=== PATIENT | female | born 1935 | race Caucasian/White ===

== ENCOUNTER 2017-10-25 13:06 | Emergency (ER) | payer OTHER ==
[2017-10-25 15:43] VITALS: BP 119/61
--- NOTE | 2017-10-25 16:05 | ED ---
Skin Complaint - HPI Summary HPI Summary: 82 yr old female with the complaint of abscess/cyst left upper back. onset couple of days ago. Her daughter squeezed the area and the patient states about a dime size amount of pus came out of the area. She states it had a white head. She states she has no history of MRSA. She has had the same area a problem a couple of years ago. No other complaints today. - History of Current Complaint Chief Complaint: UCSkin Time Seen by Provider: 10/25/17 15:44 Stated Complaint: MID BACK SKIN COMPLAINT Pain Intensity: 0 - Allergy/Home Medications Allergies/Adverse Reactions: Allergies Allergy/AdvReac Type Severity Reaction Status Date / Time Meperidine [From Demerol HCl] Allergy Intermediate Rash Verified 10/25/17 15:32 Morphine Allergy Intermediate Rash Verified 10/25/17 15:32 Home Medications: Home Medications Spironolactone TAB* [Aldactone TAB 25 MG*] 1 tab QAM 10/25/17 [History Confirmed 10/25/17] PMH/Surg Hx/FS Hx/Imm Hx Endocrine/Hematology History: Reports: Hx Thyroid Disease - thyroid nodules; radioactive iodine tx Respiratory History: Denies: Hx Lung Cancer - Surgical History Surgery Procedure, Year, and Place: bilat knee replacements Infectious Disease History: No Infectious Disease History: Reports: History Other Infectious Disease - staff infection in R knee Denies: Traveled Outside the [place] in Last 30 Days - Family History Known Family History: Positive: Hypertension - Social History Alcohol Use: Rare Substance Use Type: Reports: None Smoking Status (MU): Never Smoked Tobacco Review of Systems Constitutional: Negative Positive: Other - left upper back skin lesion All Other Systems Reviewed And Are Negative: Yes Physical Exam Triage Information Reviewed: Yes Vital Signs On Initial Exam: Initial Vitals Temp Pulse Resp BP Pulse Ox 97.8 F 66 16 119/61 98 10/25/17 15:34 10/25/17 15:34 10/25/17 15:34 10/25/17 15:34 10/25/17 15:34 Vital Signs Reviewed: Yes Appearance: Positive: Well-Appearing, No Pain Distress Skin: Positive: Other - she has a 2 cm diameter cystic lesion left upper back mid scapular level. No flutuance at this point and no redness. Head/Face: Positive: Normal Head/Face Inspection Eyes: Positive: EOMI ENT: Positive: Normal ENT inspection Neck: Positive: Supple Respiratory/Lung Sounds: Positive: Clear to Auscultation, Breath Sounds Present Cardiovascular: Positive: RRR. Negative: Murmur Abdomen Description: Positive: Nontender Musculoskeletal: Positive: Strength/ROM Intact Neurological: Positive: Sensory/Motor Intact, Alert, Oriented to Person Place, Time, CN Intact II-III Psychiatric: Positive: Normal - [place] Coma Scale Best Eye Response: 4 - Spontaneous Best Motor Response: 6 - Obeys Commands Best Verbal Response: 5 - Oriented Coma Scale Total: 15 Diagnostics - Vital Signs Vital Signs Temp Pulse Resp BP Pulse Ox 10/25/17 15:34 97.8 F 66 16 119/61 98 - Laboratory Lab Statement: Any lab studies that have been ordered have been reviewed, and results considered in the medical decision making process. Course/Dx - Course Course Of Treatment: 82 yr old with cysts abscess that she has already had drained by her daughter. Rx keflex, and then follow up with her PCP and Sales Promotion Officer. - Diagnoses Provider Diagnoses: Abscess, Cyst Discharge - Discharge Plan Condition: Good Disposition: HOME Prescriptions: Cephalexin CAP* [Keflex CAP*] 500 mg PO QID #40 cap Patient Education Materials: Abscess (ED) Referrals: Marium CASTILLO,Luisito Lindquist [Primary Care Provider] - 7 Days Silvina Chpaarro [Medical Doctor] - As Soon As Possible
== END 2017-10-25 16:05 | disposition home or self-care (01) ==
LOC: UCCORT 13:06
DX: L02.212 Cutaneous abscess of back [any part, except buttock and flank] (principal); L72.3 Sebaceous cyst; E07.9 Disorder of thyroid, unspecified; Z96.653 Presence of artificial knee joint, bilateral; Z88.5 Allergy status to narcotic agent
CPT/HCPCS: 99212; G0463

== ENCOUNTER 2018-07-10 10:22 | Emergency (ER) | payer MEDICARE, OTHER ==
[2018-07-10 10:47] VITALS: BP 125/66
--- NOTE | 2018-07-10 10:55 | UC ---
Respiratory Complaint HPI - HPI Summary HPI Summary: 83-year-old female presents with cough. She states she has had a cough with congestion and postnasal drip with some laryngitis for about 8 days. She states she was improving up until yesterday but feels today the cough is more severe. She is having left-sided rib discomfort from coughing. She denies any fevers or chills. She denies any nausea or vomiting. She has positive fatigue symptoms as well as some ear pressure bilaterally. She is to fly to the [facility] in 4 days and came in to be seen at this time to try to turn her symptoms around. She can't speak in complete sentences. She denies previous bronchitis in the past couple years and states has never had pneumonia. She states to be up-to-date with her pneumonia vaccination and received her flu vaccine 3 weeks ago. She denies any chest pain palpitations or shortness of breath. - History of Current Complaint Chief Complaint: UCRespiratory Stated Complaint: COUGH Time Seen by Provider: 07/10/18 10:36 Hx Obtained From: Patient Onset/Duration: Gradual Onset Timing: Constant Pain Intensity: 0 Character: Cough: Productive - Allergies/Home Medications Allergies/Adverse Reactions: Allergies Allergy/AdvReac Type Severity Reaction Status Date / Time adhesive tape Allergy Rash Verified 07/10/18 10:43 meperidine [From Demerol] Allergy Rash Verified 07/10/18 10:43 morphine Allergy Rash Verified 07/10/18 10:43 Home Medications: Home Medications Atorvastatin* [Lipitor 20 MG*] 20 mg PO DAILY 07/10/18 [History Confirmed ] Cholecalciferol TAB* [Vitamin D TAB*] 1,000 unit PO DAILY 07/10/18 [History Confirmed 07/10/18] Levothyroxine TAB* [Synthroid 88 MCG TAB*] 88 mcg PO DAILY 07/10/18 [History Confirmed 07/10/18] Pantoprazole TAB (NF) [Protonix TAB (NF)] 20 mg PO DAILY 07/10/18 [History Confirmed 07/10/18] Venlafaxine EXT RELEASE CAP* [Effexor Xr CAP*] 75 mg PO DAILY 07/10/18 [History Confirmed 07/10/18] PMH/Surg Hx/FS Hx/Imm Hx Endocrine History: Hypothyroidism, Dyslipidemia GI/ History: Gastroesophageal Reflux Psychological History: Anxiety, Depression - Surgical History Surgical History: Yes Surgery Procedure, Year, and Place: bilat knee replacements. cardiac loop monitor 05/2018 - Family History Known Family History: Positive: Hypertension - Social History Occupation: Retired Alcohol Use: Rare Substance Use Type: None Smoking Status (MU): Never Smoked Tobacco Review of Systems Constitutional: Fatigue Skin: Negative Eyes: Negative ENT: Ear Ache, Nasal Discharge, Sinus Congestion, Sinus Pain/Tenderness Respiratory: Cough Cardiovascular: Negative Gastrointestinal: Negative Genitourinary: Negative Motor: Negative Neurovascular: Negative Musculoskeletal: Negative Neurological: Negative Psychological: Negative Is Patient Immunocompromised?: No All Other Systems Reviewed And Are Negative: Yes Physical Exam Triage Information Reviewed: Yes Appearance: Well-Appearing, No Pain Distress, Ill-Appearing Vital Signs: Initial Vital Signs Temp 96.5 F 07/10/18 10:41 Pulse 81 07/10/18 10:41 Resp 22 07/10/18 10:41 BP 125/66 07/10/18 10:41 Pulse Ox 99 07/10/18 10:41 Vital Signs Reviewed: Yes Eye Exam: Normal ENT Exam: Normal Dental Exam: Normal Neck exam: Normal Neck: Positive: 1 Respiratory Exam: Normal Cardiovascular Exam: Normal Musculoskeletal Exam: Normal Neurological Exam: Normal Psychological Exam: Normal Skin Exam: Normal UC Diagnostic Evaluation - Laboratory O2 Sat by Pulse Oximetry: 99 Diagnostic Studies Comment: IMPRESSION: No alveolar consolidation is noted. Respiratory Course/Dx - Course Course Of Treatment: Based on her duration of symptoms and her risk factors she will be treated for bronchitis with antibiotics at this time. She is advised to return to the office if there are any concerns and she is aware of side effects of antibiotics. She was advised to postpone her trip until she was feeling improved. - Differential Dx/Diagnosis Differential Diagnosis/HQI/PQRI: Bronchitis, CHF, Pulmonary Edema, Laryngitis, Lower Resp Infection, Sinusitis Provider Diagnoses: Bronchitis Discharge - Sign-Out/Discharge Documenting (check all that apply): Patient Departure All imaging exams completed and their final reports reviewed: Yes - Discharge Plan Condition: Good Disposition: HOME Prescriptions: Cefuroxime 500 MG(NF) 500 mg PO BID 10 Days #20 tab Patient Education Materials: Acute Bronchitis (ED) Referrals: Marium CASTILLO,Luisito Lindquist [Primary Care Provider] - 4 Days - Billing Disposition and Condition Condition: GOOD Disposition: Home
--- NOTE | 2018-07-10 12:14 | RAD ---
Indication: Cough. 2 views of the chest including dual energy PA views are reviewed and compared to previous exam dated December 28, 2008. No mediastinal shift is noted. Heart is of normal size and configuration. Lung moreno demonstrate no pleural fluid, pneumonia or pneumothorax. IMPRESSION: No alveolar consolidation is noted.
== END 2018-07-10 12:00 | disposition home or self-care (01) ==
LOC: UCCORT 10:22
DX: J40 Bronchitis, not specified as acute or chronic (principal); E78.5 Hyperlipidemia, unspecified; E03.9 Hypothyroidism, unspecified; K21.9 Gastro-esophageal reflux disease without esophagitis; F41.8 Other specified anxiety disorders; Z88.5 Allergy status to narcotic agent
CPT/HCPCS: 71046; 99212; G0463